=== PATIENT | male | born 1960 | race Native Hawaiian/Other Pacific Islander ===

== ENCOUNTER 2020-08-08 10:36 | Outpatient (CLI) | payer OTHER | END 2020-08-08 19:07 | disposition home or self-care (01) | LOC: RAD 10:36 | PROVIDERS: ATTEND Internal Medicine | DX: R20.0 Anesthesia of skin (principal); M54.2 Cervicalgia; M54.9 Dorsalgia, unspecified; M25.552 Pain in left hip; M25.551 Pain in right hip ==